=== PATIENT | male | born 1975 | race Caucasian/White ===

== ENCOUNTER 2021-08-25 06:38 | Emergency (ER) | payer SELFPAY ==
[~2021-08-25] VITALS: Ht 182.9 cm; Wt 136.4 kg
[2021-08-25 06:46] VITALS: BP 142/99
[2021-08-25] MEDS ORDERED: CONTRAST GIVEN. MC PRN (07:00)
[2021-08-25] MEDS ORDERED: IOHEXOL 300 MG/ML 75 ML VIAL. IV ONE (07:00)
[2021-08-25] MEDS ORDERED: ONDANSETRON PF 4 MG/2 ML VIAL. IVP ONE (07:00)
--- NOTE | 2021-08-25 09:26 | PHYS DOC ---
Past History Past Surgical History: No Surgical History Alcohol Use: Occasionally General Adult EDM: Chief Complaint: FOREIGN BODY HPI: HPI: Patient is a 46-year-old male coming in for foreign body in his throat. Patient states he was eating Ramen with a plastic fork and a prong broke off. Patient states he feels it in his throat. States is moving. Has had retching and vomiting but no foreign body expulsion. No other complaints Review of Systems: Review of Systems: All other systems within normal limits except for as noted in the HPI Current Medications: Current Meds: Current Medications Medications (Trade) Dose Ordered Sig/Santos Start Time Stop Time Status Last Admin Dose Admin Info (Do NOT chart on this entry -- for MONITORING) 1 each PRN DAILY PRN 08/25/21 07:00 08/27/21 06:59 Iohexol (Omnipaque 300 Mg/ml) 75 ml 1X ONCE 08/25/21 07:00 08/25/21 07:01 DC 08/25/21 07:22 75 ML Lorazepam (Ativan Inj) 1 mg 1X ONCE 08/25/21 07:00 08/25/21 07:01 DC 08/25/21 07:00 1 MG Ondansetron HCl (Zofran) 4 mg 1X ONCE 08/25/21 07:00 08/25/21 07:01 DC 08/25/21 07:00 4 MG Allergies: Allergies: Allergies Coded Allergies Type Severity Reaction Last Updated Verified No Known Drug Allergies 08/25/21 No Physical Exam: PE: Constitutional: Well developed, well nourished, no acute distress, non-toxic appearance. [] HENT: Normocephalic, atraumatic, bilateral external ears normal, nose normal. [] Eyes: PERRLA, conjunctiva normal, no discharge. [] Neck: No rigidity, supple, no stridor. [] Cardiovascular: Regular rate and rhythm, brisk cap refill [] Lungs & Thorax: Non labored symmetric respirations, no tachypnea or respiratory distress [] Abdomen: Soft, nondistended. Skin: Warm, dry, no erythema, no rash. [] Back: Unremarkable Extremities: No deformities, range of motion grossly intact, no lower extremity edema [] Neurologic: Alert and oriented X 3, no focal deficits noted. [] Psychologic: Affect normal, judgement normal, mood normal. [] Current Patient Data: Vital Signs: Vital Signs Date Time Temp Pulse Resp B/P (MAP) Pulse Ox O2 Delivery O2 Flow Rate FiO2 08/25/21 06:46 96.0 118 18 142/99 (113) 98 Room Air EKG: EKG: [] Radiology/Procedures: Radiology/Procedures: [address] [id number] IMAGING REPORT Signed PATIENT: MARLEE CHAMBERLAIN ACCOUNT: [id number] : 1975 LOCATION: ER AGE: 46 SEX: M EXAM STATUS: REG ER ORD. PHYSICIAN: ONUR AGUIAR MD REASON: foreign body PROCEDURE: CT SOFT TISSUE NECK W/CONTRAST CT NECK SOFT TISSUE WITH IV CONTRAST History: Foreign body. Comparison: None. Technique: Noncontrast CT of the neck. Findings: Motion artifact significantly degrades image quality throughout the exam. Exam was repeated with improved positioning. The paranasal sinuses are clear. No mass in the nasal cavity, oral cavity, oropharynx, larynx, proximal trachea and esophagus. A hypoattenuating focus seen in the proximal thoracic esophagus on the initial scan is not redemonstrated on the subsequent scan, likely representing artifact. There is no subcutaneous gas or pneumomediastinum. No abnormal cervical lymph nodes. The vasculature is within normal limits. Normal parotid, submandibular and thyroid glands. No abnormal lymph nodes. The vascular structures are patent. No acute osseous abnormality identified. Visualized lung apices are unremarkable. Impression: 1. No foreign body identified in the neck. No evidence of esophageal perforation. ------ Exposure: One or more of the following individualized dose reduction techniques were utilized for this examination: 1. Automated exposure control 2. Adjustment of the mA and/or kV according to patient size 3. Use of iterative reconstruction technique. Electronically signed by: Carlos Navarro MD (08/25/2021 9:35 AM) [facility] DICTATED AND SIGNED BY: CARLOS NAVARRO MD DATE: 08/25/21 0741 CC: ONUR AGUIAR MD; DENISE MEAD DO ~ [] Heart Score: C/O Chest Pain: No Risk Factors: Risk Factors: DM, Current or recent (<one month) smoker, HTN, HLP, family history of CAD, obesity. Risk Scores: Score 0 - 3: 2.5% MACE over next 6 weeks - Discharge Home Score 4 - 6: 20.3% MACE over next 6 weeks - Admit for Clinical Observation Score 7 - 10: 72.7% MACE over next 6 weeks - Early Invasive Strategies Course & Med Decision Making: Course & Med Decision Making Patient given Zofran and Ativan for anxiety and retching. Patient is not actively vomiting. For scan was limited because of artifact. Discussed with radiologist who would like the study redone. Says the radiologist again. No identification of foreign body or sequelae of injury in the pharynx. Patient speaking in full sentences. States he still has foreign body sensation discussed that he can still have the sensation. Discussed return precautions Dragon Disclaimer: Dragon Disclaimer: This electronic medical record was generated, in whole or in part, using a voice recognition dictation system. Departure Departure: Impression: Primary Impression: Pain in throat Disposition: HOME / SELF CARE / HOMELESS Condition: STABLE Referrals: DENISE MEAD DO (PCP) Patient Instructions: Sore Throat, [id number] ONUR AGUIAR MD Aug 25, 2021 09:26
--- NOTE | 2021-08-25 09:37 | RAD ---
CT NECK SOFT TISSUE WITH IV CONTRAST History: Foreign body. Comparison: None. Technique: Noncontrast CT of the neck. Findings: Motion artifact significantly degrades image quality throughout the exam. Exam was repeated with improved positioning. The paranasal sinuses are clear. No mass in the nasal cavity, oral cavity, oropharynx, larynx, proxim al trachea and esophagus. A hypoattenuating focus seen in the proximal thoracic esophagus on the init ial scan is not redemonstrated on the subsequent scan, likely representing artifact. There is no subc utaneous gas or pneumomediastinum. No abnormal cervical lymph nodes. The vasculature is within normal limits. Normal parotid, submandibular and thyroid glands. No abnormal lymph nodes. The vascular structures ar e patent. No acute osseous abnormality identified. Visualized lung apices are unremarkable. Impression: 1. No foreign body identified in the neck. No evidence of esophageal perforation. ------ Exposure: One or more of the following individualized dose reduction techniques were utilized for thi s examination: 1. Automated exposure control 2. Adjustment of the mA and/or kV according to patient size 3. Use of iterative reconstruction technique. Electronically signed by: Carlos Alexis MD (08/25/2021 9:35 AM) [facility]
== END 2021-08-25 09:50 | disposition home or self-care (01) ==
LOC: ER 06:38
DX: R07.0 Pain in throat (principal); R11.10 Vomiting, unspecified; R09.89 Other specified symptoms and signs involving the circulatory and respiratory systems
CPT/HCPCS: 70491; 96374; 96375; 99285; J2060; J2405; Q9967

== ENCOUNTER 2021-08-25 20:02 | Emergency (ER) | payer SELFPAY ==
[~2021-08-25] VITALS: Ht 182.9 cm; Wt 136.4 kg
[2021-08-25] MEDS ORDERED: LIDO:MAALOX 1:1 20 ML SINGLE DOSE. PO ONE (20:45)
--- NOTE | 2021-08-25 20:49 | PHYS DOC ---
Past History Past Surgical History: No Surgical History (MC PAIGE APRN) Alcohol Use: Occasionally (MC PAIGE APRN) General Adult EDM: Chief Complaint: SWALLOWED FORIEGN BODY HPI: HPI: Patient is a 46-year-old male who presents to the emergency department for possible ingestion of a foreign body. Patient reports that he bit the prong off of a plastic fork earlier this morning was seen in the emergency department had CT scan of his neck that showed no acute findings. Patient reports that he went home and ate and laid down and woke up and started having pain in his throat. Patient reports that he is coughing today clear his throat and he is making himself vomit. He is able to tolerate oral intake and maintaining secretions. (MC PAIGE APRN) Review of Systems: Review of Systems: HENT: See HPI Respiratory: See HPI GI: See HPI Psychiatric: Reports anxiety (MC PAIGE APRN) Allergies: Allergies: Allergies Coded Allergies Type Severity Reaction Last Updated Verified No Known Drug Allergies 08/25/21 No (MC PAIGE APRN) Physical Exam: PE: Constitutional: Well developed, well nourished, no acute distress, non-toxic appearance. [] HENT: Normocephalic, atraumatic, bilateral external ears normal, oropharynx moist, no visible foreign body, no oral exudates, nose normal. [] Eyes: PERRL, EOMI, conjunctiva normal, no discharge. [] Neck: Normal range of motion, no tenderness, supple, no stridor. [] Cardiovascular:Heart rate regular rhythm, no murmur [] Lungs & Thorax: Bilateral breath sounds clear to auscultation [] Abdomen: Bowel sounds normal, soft, no tenderness, no masses, no pulsatile masses. [] Skin: Warm, dry, no erythema, no rash. [] Back: No tenderness, normal range of motion Extremities: No tenderness, no cyanosis, no clubbing, ROM intact, no edema. [] Neurologic: Alert and oriented X 3, normal motor function, normal sensory function, no focal deficits noted. [] Psychologic: Affect normal, judgement normal, mood normal. [] (MC PAIGE APRN) EKG: EKG: [] (MC PAIGE APRN) Radiology/Procedures: Radiology/Procedures: [] (MC PAIGE APRN) Heart Score: C/O Chest Pain: N/A Risk Factors: Risk Factors: DM, Current or recent (<one month) smoker, HTN, HLP, family history of CAD, obesity. Risk Scores: Score 0 - 3: 2.5% MACE over next 6 weeks - Discharge Home Score 4 - 6: 20.3% MACE over next 6 weeks - Admit for Clinical Observation Score 7 - 10: 72.7% MACE over next 6 weeks - Early Invasive Strategies (MC PAIGE APRN) Course & Med Decision Making: Course & Med Decision Making Pertinent Labs and Imaging studies reviewed. (See chart for details) [] Patient presents to the emergency department for throat pain. Patient reports that he swallowed from a full of a plastic fork this morning. He was seen in this emergency department had a negative CT scan. It does not appear that patient has a visible foreign body. He is able to tolerate oral intake and maintain his secretions. Patient likely scratched his throat when he swallowed the plastic piece of the fork. He was treated with a GI cocktail. He is able to tolerating oral intake. I discussed with patient all findings and diagnostic testing as well as the need to follow-up with PCP for further evaluation and treatment or return to the ER if any new or worsening symptoms. Strict return precautions were also discussed at length. Patient voiced understanding and agreement with the plan. Patient is hemodynamically stable at the time of disposition. (MC PAIGE APRN) Course & Med Decision Making Did not see or evaluate patient. Did not discuss patient with TELEGRAPH REPEATER INSTALLER. Generally agree wit TELEGRAPH REPEATER INSTALLER's work-up and disposition per note. (YAYO RAYMUNDO MD) Dragon Disclaimer: Dragon Disclaimer: This electronic medical record was generated, in whole or in part, using a voice recognition dictation system. (MC PAIGE APRN) Departure Departure: Impression: Primary Impression: Sore throat Disposition: HOME / SELF CARE / HOMELESS Condition: GOOD Referrals: DENISE MEAD DO (PCP) PATRICK PELAYO MD Patient Instructions: Sore Throat Additional Instructions: You are seen in the emergency department for throat pain. As we discussed, you likely scratched his throat when he swallowed the foreign body. Follow-up with your primary care provider on Thursday regarding your ER visit. If you continue to have symptoms he may need to follow-up with a GI doctor. Was attached to this information. Return to the emergency department if you develop shortness of breath, chest pain, inability to maintain your secretions, high fevers refractory to treatment, tractable nausea or vomiting, inability to tolerate oral intake. MC PAIGE APRN Aug 25, 2021 20:49 YAYO RAYMUNDO MD Aug 25, 2021 23:11
[2021-08-25 21:26] VITALS: BP 128/103
== END 2021-08-25 21:28 | disposition home or self-care (01) ==
LOC: ER 20:02
DX: J02.9 Acute pharyngitis, unspecified (principal); R11.10 Vomiting, unspecified
CPT/HCPCS: 99282